=== PATIENT | male | born 1980 | race Caucasian/White ===

== ENCOUNTER 2025-01-20 16:32 | Emergency (ER) | payer BC ==
[2025-01-20] MEDS: Amoxicillin/Clavulanate K 875-125 MG Tab PO ONE (17:34)
== END 2025-01-20 17:36 | disposition home or self-care (01) ==
LOC: MW.ED 16:32
DX: S61.452A Open bite of left hand, initial encounter (principal); S61.451A Open bite of right hand, initial encounter; F17.200 Nicotine dependence, unspecified, uncomplicated; Z79.899 Other long term (current) drug therapy; Z75.3 Unavailability and inaccessibility of health-care facilities; W55.01XA Bitten by cat, initial encounter
CPT/HCPCS: 99283; A9270; 99282

== ENCOUNTER 2025-01-21 10:51 | Emergency (ER) | payer BC | END 2025-01-21 11:18 | disposition home or self-care (01) | LOC: MW.ED 10:51 | DX: Z48.00 Encounter for change or removal of nonsurgical wound dressing (principal); Z79.899 Other long term (current) drug therapy; Z75.3 Unavailability and inaccessibility of health-care facilities | CPT/HCPCS: 99282 ==